=== PATIENT | male | born 1955 | race Caucasian/White ===

== ENCOUNTER 2017-12-08 07:57 | Emergency (ER) | payer OTHER ==
[2017-12-08 08:12] VITALS: RESP 16; TEMP 97.5
[2017-12-08] MEDS ORDERED: HALOPERIDOL LACT 5 MG/ML INJ IVP ONE (08:27)
[2017-12-08] MEDS ORDERED: KETOROLAC 15 MG/1 ML SDV IVP ONE (08:27)
[2017-12-08] MEDS ORDERED: NS 1,000 ML IV ONE (08:29)
--- NOTE | 2017-12-08 08:36 | EDPHY ---
H & P Stated Complaint: Pt.states frontal headache to post neck,nausea, sob d/t pain 0615am Time Seen by Provider: 12/08/17 08:02 HPI/ROS: Chief Complaint: Headache HPI: 62-year-old male woke this morning with a severe headache. Is described as primarily in the right side but feels like a squeezing as if he is wearing a hat that is too tight. Also goes down the back of his neck on the right-hand side. It is about a 9/10. He did take Excedrin without any significant relief. He does have a history of similar headaches in the past. He also has a history of chronic back pain for she takes opioid and non opioid pain medicines. He does have similar headaches in the past going back decades. This is not the worst headache of his life. It was not sudden thunderclap in onset. No fevers or chills. No neck stiffness. Some nausea no vomiting. Some photophobia and phonophobia. ROS: 10 point Review of Systems is negative except as noted in the HPI. PMH: Chronic back pain, hypertension, kidney stones, knee replacement, type 2 diabetes Social History: No smoking, no alcohol, no recreational drug use Family History: non-contributory Physical Exam: Gen: Awake, Alert, No Distress HEENT: Nose: no rhinorrhea Eyes: PERRLA, EOMI Mouth: Moist mucosa Neck: Supple, no JVD, mild right sided trapezius tenderness with spasm, full range of motion without pain, no meningismus Chest: nontender, lungs clear to auscultation Heart: S1, S2 normal, no murmur Abd: Soft, non-tender, no guarding Back: no CVA tenderness, no midline tenderness Ext: no edema, non-tender Skin: no rash Neuro: CN II-XII intact, Sensation grossly intact, Strength 5/5 in bilateral upper and lower extremities - Personal History Current Tetanus Diphtheria and Acellular Pertussis (TDAP): Yes - Medical/Surgical History Hx Asthma: No Hx Chronic Respiratory Disease: No Hx Diabetes: No Hx Cardiac Disease: No Hx Renal Disease: No Hx Cirrhosis: No Hx Alcoholism: No Hx HIV/AIDS: No Hx Splenectomy or Spleen Trauma: No Other PMH: med hx-hyperlipidemia,htn,melanoma,chronic back pain. surg-lymph nodes(left axilla),tib/fib,knee,acl,appy,wisdom teeth, jaw surg,urethra and eye - Social History Smoking Status: Never smoked Constitutional: Initial Vital Signs Temperature (C) 36.4 C 12/08/17 08:07 Heart Rate 60 12/08/17 08:07 Respiratory Rate 16 12/08/17 08:07 Blood Pressure 178/94 H 12/08/17 08:07 O2 Sat (%) 96 12/08/17 08:07 O2 Delivery Mode Room Air Allergies/Adverse Reactions: hydrocodone bitartrate [From Vicodin] Allergy (Intermediate, Verified 12/08/17 08:03) NAUSEA Home Medications: Medication Instructions Recorded Amitriptyline HCl [Elavil 10 mg 12/08/17 (*)] Amlodipine Besylate 12/08/17 Gemfibrozil 12/08/17 Hydrochlorothiazide 12/08/17 Losartan-Hctz 100-25 mg Tab 12/08/17 Lyrica 75mg (*) 12/08/17 Metformin HCl 12/08/17 Oxycodone HCl 12/08/17 Medical Decision Making ED Course/Re-evaluation: Patient given her Toradol, Benadryl and small dose of Haldol. Is complaining of worsening pain. Will dose Dilaudid. Patient is now improved after 2, 0.5 mg doses of Dilaudid. Pain is about a 4 on 10. He is asking to go home. Patient does not have any red flags for acute intracranial bleed or infection. He has no meningismus. Did not have a thunderclap onset of headache. Is not the worst headache of life. No neurologic changes. Symptoms consistent with musculoskeletal neck pain with scalp pain exacerbation. Will discharge home for followup his grants specialist on Thursday as scheduled. - Data Points Medications Given: Discontinued Medications Diphenhydramine HCl (Benadryl Injection) 25 mg IVP EDNOW ONE Stop: 12/08/17 08:29 Last Admin: 12/08/17 08:45 Dose: 25 mg Haloperidol Lactate (Haldol Injection) 2.5 mg IVP EDNOW ONE Stop: 12/08/17 08:28 Last Admin: 12/08/17 08:54 Dose: 2.5 mg Hydromorphone HCl (Dilaudid) 0.5 mg IVP EDNOW ONE Stop: 12/08/17 09:12 Last Admin: 12/08/17 09:21 Dose: 0.5 mg Hydromorphone HCl (Dilaudid) 0.5 mg IVP EDNOW ONE Stop: 12/08/17 09:47 Last Admin: 12/08/17 09:55 Dose: 0.5 mg Sodium Chloride (Ns) 1,000 mls @ 0 mls/hr IV ONCE ONE; Wide Open PRN Reason: Protocol Stop: 12/08/17 08:30 Last Admin: 12/08/17 08:44 Dose: 1,000 mls Ketorolac Tromethamine (Toradol) 15 mg IVP EDNOW ONE Stop: 12/08/17 08:28 Last Admin: 12/08/17 08:50 Dose: 15 mg Departure - Departure Disposition: Home, Routine, Self-Care Clinical Impression: Tension headache Condition: Good Instructions: Tension Headache (ED) Additional Instructions: Follow up with your grants specialist as scheduled on Thursday. Return to the emergency department for worsening headache, nausea or vomiting, fevers or chills, or any other concerns.
[2017-12-08] MEDS ORDERED: HYDROmorphONE/DILAUDID 2 MG/ML INJ IVP ONE ×2 (09:11→09:46)
[2017-12-08 11:04] VITALS: BP 167/95; PULSE 62; O2SAT 94
== END 2017-12-08 11:01 | disposition home or self-care (01) ==
LOC: CED 07:57
DX: G44.209 Tension-type headache, unspecified, not intractable (principal); E86.9 Volume depletion, unspecified; E11.9 Type 2 diabetes mellitus without complications; I10 Essential (primary) hypertension; Z79.84 Long term (current) use of oral hypoglycemic drugs
CPT/HCPCS: 96374; J1170; J1200; J1630; J1885